=== PATIENT | female | born 1985 | race Two or more races ===

== ENCOUNTER 2016-04-17 09:42 | Emergency (ER) | payer MEDICAID ==
[2016-04-17] MEDS ORDERED: PENICILLIN G BENZATHINE 1.2 MMU/2 ML SYRINGE IM ONE (10:40)
[2016-04-17] MEDS ORDERED: DEXAMETHASONE SOD PHOS 10 MG/1 ML VIAL ONE (10:40)
[2016-04-17] MEDS ORDERED: ACETAMINOPHEN 500 MG TABLET ONE (10:40)
== END 2016-04-17 11:22 | disposition home or self-care (01) ==
LOC: ED 09:42
DX: J02.0 Streptococcal pharyngitis (principal)
CPT/HCPCS: 87880; 87804; 99283 ×2; 96372; J1100; A9270; J0561